=== PATIENT | female | born 1955 | race Caucasian/White ===

== ENCOUNTER 2016-10-30 09:27 | Day surgery (SDC) | payer OTHER ==
[2016-10-30] MEDS ORDERED: FAMOTIDINE 20 MG TAB PO ONE (09:37)
[2016-10-30] MEDS ORDERED: ASPIRIN EC 325 MG TAB PO ONE ×2 (09:37→10:01)
[2016-10-30] MEDS ORDERED: NS 1,000 ML IV ONE (09:37)
[2016-10-30] MEDS ORDERED: DIAZEPAM 5 MG TAB PO ONE (09:37)
[2016-10-30] MEDS ORDERED: diphenhydrAMINE 25 MG CAP PO ONE ×2 (09:37→10:01)
--- NOTE | 2016-10-30 09:54 | PDDXCAT ---
Diagnostic Cath Note - . 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 Access: Right femoral artery Procedure: Left heart catheterization, coronary angiography, left ventriculogram *Materials Left Heart Cath size: 6F Left Heart Cath materials: JL3.5, JR4.0, pigtail *Findings-Left Heart Catheterization LM: The left main coronary artery is ~4 mm in size and bifurcates into an LAD and circumflex system (with a high diagonal that serves as a functional ramus vessel). There is no disease identified. LAD: The LAD is ~2.75 mm in size with no evidence of flow-limiting disease and IGLESIA III flow throughout. There is a large (2.5 mm) diagonal without disease. LCX: The left circumflex is ~2.5 mm in size with no evidence of flow-limiting disease and IGLESIA III flow throughout. RCA: The right coronary artery is dominant (gives rise to PDA and PLV branches) and ~2 mm in size. There is IGLESIA III flow throughout without evidence of coronary disease. EDP: 26 mmHg LVEF: 65% Wall motion analysis: No wall motion abnormalities were identified on LVG. The visualized portion of the thoracic aorta revealed three sinuses of Valsalva. There was no evidence of aneurysm or dissection. *Summary Complications: None Estimated blood loss: <50ml Closure method: Angioseal Assessment: There is no evidence of coronary artery disease or flow-limiting abnormality. There was normal ejection fraction estimated to be 65% with normal wall motion on LVG. A cause for the patient's right-sided chest pain that wakes her from sleep and abnormalities on an ETT are not explained on the basis of this study. A possible cause could include coronary artery spasm/Prinzmetal variant angina, cardiac syndrome X. The patient should be treated medically, including SL Nitroglycerin as a diagnostic and therapeutic trial.
[2016-10-30] MEDS ORDERED: FAMOTIDINE 20 MG TAB ONE (10:01)
[2016-10-30] MEDS ORDERED: DIAZEPAM 5 MG TAB ONE (10:02)
[2016-10-30 10:05] LABS: % IMMATURE GRANULYOCYTES 0.4 % (0.0-1.1); ABSOLUTE IMMATURE GRANULOCYTES 0.03 10^3/uL (0.00-0.10); ADD DIFF? NO; ADD MORPH? NO; ADD SCAN? NO; ATYPICAL LYMPHOCYTE FLAG 10 (0-99); FRAGMENT RBC FLAG 0 (0-99); HEMATOCRIT 43.3 % (38.0-47.0); HEMOGLOBIN 14.2 g/dL (12.6-16.3); LEFT SHIFT FLG 0 (0-99); LIPEMIA HEMOLYSIS FLAG 80 (0-99); MEAN CELL HEMOGLOBIN 28.6 pg (27.9-34.1); MEAN CELL HEMOGLOBIN CONCENTR. 32.8 g/dL (32.4-36.7); MEAN CELL VOLUME 87.1 fL (81.5-99.8); MEAN PLATELET VOLUME 9.9 fL (8.7-11.7); PLATELET CLUMPS FLAG 0 (0-99); PLATELET COUNT 196 10^3/uL (150-400); RED BLOOD CELL COUNT 4.97 10^6/uL (4.18-5.33); RED CELL DISTRIBUTION WIDTH 12.9 % (11.5-15.2)
[2016-10-30 10:23] LABS: INR 0.93 (0.83-1.16); PROTIME(PATIENT) 12.4 SEC (12.0-15.0)
[2016-10-30] MEDS ORDERED: LIDOCAINE 1% 30 ML SDV ONE (10:39)
[2016-10-30] MEDS ORDERED: fentaNYL 100 MCG/2 ML INJ ONE (10:39)
[2016-10-30] MEDS ORDERED: IOPAMIDOL (ISOVUE-370) 150 ML BTL IV ONE (10:40)
[2016-10-30] MEDS ORDERED: HEPARIN 10,000 UNIT/10 ML MDV ONE (10:40)
[2016-10-30] MEDS ORDERED: MIDAZOLAM 2 MG/2 ML VIAL ONE (10:40)
[2016-10-30] MEDS ORDERED: VERAPAMIL 5 MG/2 ML VIAL ONE (10:40)
[2016-10-30 10:50] LABS: ANION GAP 10 mEq/L (8-16); CALCIUM 9.5 mg/dL (8.5-10.4); CARBON DIOXIDE 28 mEq/l (22-31); CHLORIDE 105 mEq/L (97-110); CHOLESTEROL 287 mg/dL (140-220); CREATININE 0.9 mg/dL (0.6-1.0); GLOMERULAR FILTRATION RATE > 60; GLUCOSE 81 mg/dL (70-100); MAGNESIUM 2.2 mg/dL (1.6-2.3); POTASSIUM 4.4 mEq/L (3.5-5.2); SODIUM 143 mEq/L (134-144); TRIGLYCERIDE 84 mg/dL (35-135); VERY LOW DENSITY LIPOPROTEINS 16 mg/dL (8-25)
[2016-10-30 10:59] LABS: HIGH DENSITY LIPOPROTEIN > 110 mg/dL (40-85); LOW DENSITY LIPOPROTEIN 161 mg/dL (80-100); NON-HIGH DENSITY LIPOPROTEIN 177 mg/dL (90-129)
--- NOTE | 2016-10-30 11:27 | CPEKG ---
Heart Rate: 74 RR Interval: 811 P-R Interval: 120 QRSD Interval: 78 QT Interval: 400 QTC Interval: 444 P Haigler: 83 QRS Haigler: 76 T Wave Haigler: 43 EKG Severity - NORMAL ECG - EKG Impression: SINUS RHYTHM Electronically Signed By: Evan Jay 30-Oct-2016 18:13:06
== END 2016-10-30 16:40 | disposition home or self-care (01) ==
LOC: FCATH 09:27
PROVIDERS: ATTEND Internal Medicine Cardiovascular Disease
PROC: 4A023N7 Measurement of Cardiac Sampling and Pressure, Left Heart, Percutaneous Approach (ICD-10-PCS; principal; 2016-10-30)
PROC: B2151ZZ Fluoroscopy of Left Heart using Low Osmolar Contrast (ICD-10-PCS; principal; 2016-10-30)
PROC: B2111ZZ Fluoroscopy of Multiple Coronary Arteries using Low Osmolar Contrast (ICD-10-PCS; principal; 2016-10-30)
DX: R07.9 Chest pain, unspecified (principal); R94.39 Abnormal result of other cardiovascular function study
CPT/HCPCS: C1760; J1644; J2250; J3010; Q9967